=== PATIENT | female | born 1995 | race Caucasian/White ===

== ENCOUNTER 2017-06-02 08:19 | Inpatient (IN) | payer OTHER ==
[2017-06-02 08:37] VITALS: BMI 35.6
[2017-06-02] MEDS ORDERED: Ibuprofen 800 MG TAB PO PRN (08:44)
[2017-06-02] MEDS ORDERED: HYDROcodone/Acetaminophen 5/325 mg Tablet PO PRN ×2 (08:44)
[2017-06-02] MEDS ORDERED: Ondansetron HCl/PF 4 MG/2 ML Vial IVP PRN ×3 (08:44→10:53)
[2017-06-02] MEDS ORDERED: Lidocaine 1% (PF) 30 ML VIAL SC PRN (08:44)
[2017-06-02] MEDS ORDERED: Lactated Ringer's 1,000 ML IV SCH ×2 (08:45)
[2017-06-02] MEDS ORDERED: Fentanyl 4 mcg/Marc 0.1% Cadd 100 ML ONE (09:03)
[2017-06-02 09:08] LABS: Hematocrit 40.1 % (36.0-47.0); Mean Platelet Volume 9.2 fL (7.4-10.4); Red Blood Cell (RBC) Count 4.67 mill/uL (4.00-5.20); White Blood Cell (WBC) Count 13.8 thou/uL (4.8-10.8)
[2017-06-02] MEDS ORDERED: Naloxone HCl 0.4 mg/ml Vial IVP PRN ×2 (09:43)
[2017-06-02] MEDS ORDERED: Lactated Ringer's 500 ML IV PRN (09:43)
[2017-06-02] MEDS ORDERED: diphenhydrAMINE 50 MG/ML VIAL IVP PRN (09:43)
[2017-06-02] MEDS ORDERED: Promethazine HCl 25 MG/ML VIAL IM PRN (09:43)
[2017-06-02] MEDS ORDERED: Eucerin (Mineral Oil/Petrolatum,White) 30 gm Jar TOP PRN (09:43)
[2017-06-02] MEDS ORDERED: ePHEDrine/0.9% NaCl/PF SYRINGE 50 mg/10 ml SLOW IVP PRN (09:43)
[2017-06-02] MEDS ORDERED: Acetaminophen 325 MG TAB PO PRN (09:43)
[2017-06-02] MEDS ORDERED: Communication Order-Pharmacy FS SCH (09:45)
[2017-06-02] MEDS ORDERED: Fentanyl 4mcg/Marcaine 0.1% Cassette 100 ML EPIDURAL SCH (09:45)
[2017-06-02] MEDS: LR / Pitocin 40 units/1000 ml 1,000 ML IV PRN ×2 (10:26→11:30)
[2017-06-02] MEDS ORDERED: Benzocaine/Menthol 20-0.5% 60 ML CAN TOP PRN (10:53)
[2017-06-02] MEDS ORDERED: Bisacodyl 10 MG SUPP PR PRN (10:53)
[2017-06-02] MEDS ORDERED: Acetaminophen/Codeine 30-300mg Tablet PO PRN ×2 (10:53)
[2017-06-02] MEDS ORDERED: diphenhydrAMINE 25 MG CAP PO PRN (10:53)
[2017-06-02] MEDS ORDERED: Preparation H Ointment 28 GM TUBE PR PRN (10:53)
[2017-06-02] MEDS ORDERED: Adacel (T-DAP) 0.5 ML VIAL IM ONE (10:53)
[2017-06-02] MEDS ORDERED: LR / Pitocin 40 units/1000 ml 1,000 ML IV SCH (11:00)
[2017-06-02 11:01] LABS: CO2 Tension (PaCO2) 62.7 mmHg (44.0-56.0)
[2017-06-02] MEDS ORDERED: Ampicillin/Sulbactam 3 GM in Sodium Chloride 0.9% 100 ML IVPB SCH (12:00)
[2017-06-02] MEDS ORDERED: Lidocaine 1% (PF) 30 ML VIAL ONE (12:32)
[2017-06-02] MEDS: Ibuprofen 800 MG TAB PO SCH ×2 (12:33→21:37)
[2017-06-02] MEDS ORDERED: Bupivacaine 0.25% HCL 30 ML VIAL ONE (14:41)
[2017-06-02] MEDS: Ampicillin/Sulbactam 3 GM, Syringe 1.6 ML in Sterile Water 6.4 ML SLOW IVP SCH ×2 (15:49→21:39)
[2017-06-02] MEDS: Ferrous Sulfate 325 MG TAB PO SCH (17:07)
[2017-06-02] MEDS ORDERED: Lanolin Ointment 7 GM TUBE TOP PRN (21:24)
[2017-06-02] MEDS: Docusate Calcium (SURFAK) 240 MG CAP PO SCH (21:37)
[2017-06-03] MEDS ORDERED: Sodium Chloride 0.9% 10 ML ONE (03:56)
[2017-06-03] MEDS: Ampicillin/Sulbactam 3 GM, Syringe 1.6 ML in Sterile Water 6.4 ML SLOW IVP SCH (04:01)
[2017-06-03] MEDS: Ibuprofen 800 MG TAB PO SCH ×3 (05:50→21:25)
[2017-06-03] MEDS: Docusate Calcium (SURFAK) 240 MG CAP PO SCH ×2 (08:36→21:26)
[2017-06-03] MEDS: Milk Of Magnesia 30 ML UDCUP PO PRN (08:37)
[2017-06-03] MEDS: Ferrous Sulfate 325 MG TAB PO SCH ×2 (08:39→09:51)
[2017-06-03] MEDS ORDERED: Triple Antibiotic Ointment 30 GM TUBE TOP PRN (19:12)
[2017-06-04] MEDS: Ibuprofen 800 MG TAB PO SCH (06:15)
[2017-06-04 08:22] VITALS: BP 122/73; TEMP 98.4
[2017-06-04] MEDS: Docusate Calcium (SURFAK) 240 MG CAP PO SCH (09:11)
[2017-06-04] MEDS: Ferrous Sulfate 325 MG TAB PO SCH (09:12)
[2017-06-04] MEDS: Milk Of Magnesia 30 ML UDCUP PO PRN (12:12)
== END 2017-06-04 12:20 | disposition home or self-care (01) | DRG 775 ==
LOC: L&D/OP 08:19 → L&D 08:35 → 3SW 13:36
PROVIDERS: ADMIT Obstetrics & Gynecology; ATTEND Obstetrics & Gynecology
PROC: 0W8NXZZ Division of Female Perineum, External Approach (ICD-10-PCS; principal; 2017-06-02)
PROC: 10D07Z6 Extraction of Products of Conception, Vacuum, Via Natural or Artificial Opening (ICD-10-PCS; 2017-06-02)
PROC: 0DQP0ZZ Repair Rectum, Open Approach (ICD-10-PCS; 2017-06-02)
DX: O76 Abnormality in fetal heart rate and rhythm complicating labor and delivery (principal); O70.3 Fourth degree perineal laceration during delivery; Z3A.38 38 weeks gestation of pregnancy; Z37.0 Single live birth
CPT/HCPCS: 51702; 82805; 85027; 86780; 87340; 88307; 90715; 99283; A4216; J0295; J0595; J2001; S0020